=== PATIENT | female | born 1985 | race Caucasian/White ===

== ENCOUNTER 2019-12-19 22:15 | Emergency (ER) | payer MEDICAID ==
[~2019-12-19] VITALS: Ht 172.7 cm; Wt 86.6 kg
[2019-12-19 22:19] VITALS: BP 112/79
--- NOTE | 2019-12-19 23:17 | NUR ---
ONE SAFE [address] CALLED. SPOKE TO ADVOCATE: ADVOCATE STATED THAT THE PATIENT DOES NOT MEET THE REQUIREMENTS FOR EMERGENCY HOUSING BECAUSE SHE IS NOT EXPERIENCING PHYSICAL ABUSE OR THREATS OF PHYSICAL ABUSE. THE ADVOCATE ADVISED THAT THE PATIENT CAN COME AND INTERVIEW WITH THEIR STAFF DURING THE DAY TO SEE WHAT SERVICES MAY BE AVAILABLE TO HER.
[2019-12-20] MEDS ORDERED: LORA-269 PO (00:43)
== END 2019-12-20 00:52 | disposition home or self-care (01) ==
LOC: ER 22:18
DX: F32.9 Major depressive disorder, single episode, unspecified (principal); F41.9 Anxiety disorder, unspecified; F12.90 Cannabis use, unspecified, uncomplicated; Z79.899 Other long term (current) drug therapy
CPT/HCPCS: 99283

== ENCOUNTER 2022-10-12 06:10 | Emergency (ER) | payer MEDICAID ==
[~2022-10-12] VITALS: Ht 172.7 cm; Wt 100.0 kg
[~2022-10-12 06:10] MED LIST: LORA-269 PO
[2022-10-12 06:26] VITALS: BP 123/82
[2022-10-12] MEDS ORDERED: cetirizine 10mg tablet PO ONE (06:55)
[2022-10-12] MEDS ORDERED: predniSONE 20 mg tablet PO ONE (06:55)
[2022-10-12] MEDS ORDERED: CETI10TA15 PO (06:58)
[2022-10-12] MEDS ORDERED: TRIA15CR62 TOP (06:58)
[2022-10-12] MEDS ORDERED: PRED10TA23 PO (06:58)
== END 2022-10-12 07:21 | disposition home or self-care (01) ==
LOC: ER 06:12
DX: L23.9 Allergic contact dermatitis, unspecified cause (principal); M54.2 Cervicalgia; F32.9 Major depressive disorder, single episode, unspecified; F12.90 Cannabis use, unspecified, uncomplicated; Z79.899 Other long term (current) drug therapy
CPT/HCPCS: 99284; J7512